=== PATIENT | female | born 1995 | race Caucasian/White ===

== ENCOUNTER 2021-06-27 16:50 | Observation (INO) | payer MEDICAID ==
[~2021-06-27] VITALS: Ht 154.9 cm; Wt 100.7 kg
[2021-06-27 17:27] VITALS: BP 120/69
[2021-06-27 21:13] LABS: BASOPHILS # (AUTO) 0.2 K/uL (0.00-0.22); BASOPHILS % (AUTO) 1.5 % (0.0-2.0); EOSINOPHILS # (AUTO) 0.1 K/uL (0-0.4); EOSINOPHILS % (AUTO) 0.6 % (0.0-4.0); HEMATOCRIT 35.5 % (36-48); HEMOGLOBIN 11.8 g/dL (12.0-16.0); LYMPHOCYTES % (AUTO) 14.2 % (20.5-51.1); MEAN CORPUSCULAR HEMOGLOBIN 31 pg (27-31); MEAN CORPUSCULAR HGB CONC 33 g/dL (33-37); MEAN CORPUSCULAR VOLUME 92.8 fL (80-94); MONOCYTES # (AUTO) 0.5 K/uL (0.8-1.0); MONOCYTES % (AUTO) 3.8 % (1.7-9.3); NEUTROPHILS % (AUTO) 79.9 % (42.2-75.2); PLATELET COUNT (AUTO) 292 K/uL (140-450); RED BLOOD CELL COUNT(AUTO) 3.83 MIL/uL (4.20-5.40); RED CELL DISTRIBUTION WIDTH 13.3 % (11.6-13.7); WHITE BLOOD COUNT (AUTO) 13.7 K/uL (4.8-10.8)
== END 2021-06-27 23:20 | disposition home or self-care (01) ==
LOC: MLD 16:50
PROVIDERS: ADMIT Obstetrics & Gynecology; ATTEND Obstetrics & Gynecology
DX: O99.891 Other specified diseases and conditions complicating pregnancy (principal); M79.601 Pain in right arm; Z3A.34 34 weeks gestation of pregnancy; W01.0XXA Fall on same level from slipping, tripping and stumbling without subsequent striking against object, initial encounter; Y93.89 Activity, other specified; Y92.89 Other specified places as the place of occurrence of the external cause
CPT/HCPCS: 36415; 59025; 81000; 85025; 85384; 86886; 86900; 86901; G0378; G0379

== ENCOUNTER 2023-02-01 17:07 | Emergency (ER) | payer MEDICAID ==
[~2023-02-01] VITALS: Ht 157.5 cm; Wt 101.2 kg
[2023-02-01 17:16] VITALS: BP 107/68; PULSE 73; RESP 18; TEMP 97.9; O2SAT 100
[2023-02-01] MEDS ORDERED: NITR100C7 PO (17:45)
[2023-02-01 17:57] VITALS: BP 107/68; PULSE 73; RESP 18; TEMP 97.9; O2SAT 100
== END 2023-02-01 17:58 | disposition home or self-care (01) ==
LOC: MED 17:07
DX: O23.41 Unspecified infection of urinary tract in pregnancy, first trimester (principal); Z3A.08 8 weeks gestation of pregnancy; Z90.49 Acquired absence of other specified parts of digestive tract
CPT/HCPCS: 81002; 81025; 99283